=== PATIENT | male | born 1980 | race Caucasian/White ===

== ENCOUNTER 2023-09-26 06:15 | Day surgery (SDC) | payer OTHER, SELFPAY ==
[2023-09-26] VITALS (11 sets, daily range): BP systolic 103–139; BP diastolic 62–89; BMI 33.8
[2023-09-26] MEDS: NORMOSOL-R 1000 IV (13:02)
[2023-09-26] MEDS: TYLENOL 1000 MG PO (13:20)
--- NOTE | 2023-09-26 16:01 | W.SUR.PREOP ---
Pre-Operative Surgical Note
-
I have examined this patient prior to the performance of the scheduled procedure.
The patient's condition is unchanged from the time of the current History and
Physical and the patient is able to undergo the scheduled procedure.
--- NOTE | 2023-09-26 16:01 | W.IMMPOSTOP ---
Surgical Immed Post Op Note
-
Primary Surgeon: Reid Mo MD
Assisting Surgeon: None
Pre-op Diagnosis: Umbilical hernia
Post-op Diagnosis: Same
Procedure Performed: Robotic umbilical hernia repair with mesh (RONAN approach)
Anesthesia Type: General
Specimen / Cultures: None
Estimated Blood Loss: 3 cc
Complications: None
Operative Findings: 1.5 cm umbilical defect closed with a running 0 PDS strata fix. The peritoneal flap was quite thin so an [address] (polypropylene coated mesh) was used but was almost entirely covered except for a few centimeters of
the right upper quadrant.
--- NOTE | 2023-09-26 16:04 | OR.RPT ---
Operative Report
Operative Report
Patient Name: Daren Kent
: 1980
Date of Operation: 09/26/2023
Preoperative Diagnosis: Umbilical hernia
Postoperative Diagnosis: Same
Procedure(s):
Robotic umbilical hernia repair with mesh (RONAN approach)
Surgeon(s):
Dr. Mo
Assitant(s):
[facility] Or[facility]
Anesthesia: General
Estimated Blood Loss: 3 cc
Urine Output: None
Drains/Lines/Implants:
[address] cm [address] Bard [address] (coated polypropylene) mesh
Specimens:
None
HPI/Surgical Indications:
This is a 43-year-old male who was seen in my office for a symptomatic umbilical bulge and diagnosed with a reducible umbilical hernia. Risks/Benefits/Alternatives were discussed at length, and the patient agreed to proceed with surgery.
Operative Findings: 1.5 cm umbilical defect containing preperitoneal fat closed with a running 0 PDS strata fix. The peritoneal flap was quite thin so an [address] (polypropylene coated mesh) was used but was almost entirely covered
except for a few centimeters of the right upper quadrant.
Procedure Description:
The patient was brought to the Operating Room and placed in the supine position with the arms tucked. IV antibiotics were infused and Venodyne stockings placed. Following uneventful induction of general endotracheal anesthesia, an orogastric tube
were placed. The abdomen was prepped and draped in the usual sterile fashion. The abdomen was entered using a Veress technique which required 1 pass, pneumoperitoneum to 15 mmHg was obtained without difficulty. An 8mm trochar was passed through
the abdominal wall roughly 20 cm laterally from the defect in the left upper quadrant, we then confirmed the no inadvertent injury and made while passing the trocar or Veress needle. We then placed two additional 8 mm ports in the left lower
quadrant. Bilateral tap blocks were performed. The robot was docked. We then introduced our prograsper through the inferior/left hand port and a monopolar scissors through the superior port. We then turned our attention to the hernia which had
no intra-abdominal contents. We then began taking a flap down roughly 6 cm away from the defect and roughly 12 cm in length taking care to stay in the pretransversalis plane. The peritoneum was very thin particularly at the superior aspect of the
dissection. The preperitoneal fat was taken down off of the posterior rectus sheath both superior and inferior to the hernia defect such that we were able to get our 'volcano sign'. We then worked on reducing the defect which contained
preperitoneal fat and continued our dissection out laterally for an additional 6 to 7 cm. Once our flap was created we introduced a ruler and a 0 PDS Stratafix. The main hernia defect measured 1.5 cm. The pocket measured 12 x 12 cm. Given how
thin her peritoneal flap was and the rents in the right upper quadrant of our flap I elected to use an 11 cm round Bard Ventralight ST (coated polypropylene) mesh which was secured to the abdominal wall first using Aron Boogie passed through
infraumbilical stab incision the mesh was then secured to the posterior rectus sheath using a circumferential running 2-0 PDS STRATAFIX suture with good apposition. The flap was then closed with a running 2-0 barbed Monocryl. There were a few
rents in the left upper quadrant of the flap that were closed with interrupted 2-0 Vicryl's. There was only a few centimeters of the mesh in the right upper quadrant that were exposed however the flap was under fair deal of tension and attempted
closure would likely just increase the size of the rents. All sutures were removed. The robot was undocked. The ports were removed under direct visualization and pneumoperitoneum was evacuated. The port sites were closed with 4-0 Monocryl followed
by Dermabond. Counts were correct and overall, the patient tolerated the procedure well and was taken to the Recovery Room postoperatively in stable condition.
I was the attending physician and performed the procedure with assistance from the PA above. The assistance of [facility] was required due to the complexity of the procedure. During the procedure Henna assisted with retraction, resection,
passing mesh and suture as well as exchanging instruments and closure of the port sites. I was present for all portions of the case except for skin closure.
Reid Mo MD
[2023-09-26] MEDS: ZOFRAN 4 MG IV (16:19)
[2023-09-26] MEDS: DILAUDID 0.25 MG IV (16:40)
== END 2023-09-26 17:46 | disposition home or self-care (01) ==
LOC: SDS 06:15
PROVIDERS: ATTENDING PHYSICIAN Surgery
DX: K42.9 Umbilical hernia without obstruction or gangrene (principal)
CPT/HCPCS: 49591; C1781

== ENCOUNTER → 2025-03-04 11:18 | Outpatient (REF) | payer OTHER, SELFPAY | LOC: RAD 11:18 | PROVIDERS: ATTENDING PHYSICIAN Family Medicine | DX: M54.9 Dorsalgia, unspecified (principal) | CPT/HCPCS: 74018 ==

== ENCOUNTER 2025-04-27 06:26 | Day surgery (SDC) | payer OTHER, SELFPAY ==
[2025-04-27] VITALS (10 sets, daily range): BP systolic 98–131; BP diastolic 62–79; BMI 33.7
[2025-04-27] MEDS: NORMOSOL-R/PLASMALYTE-A 1000 IV (11:13)
[2025-04-27] MEDS: ZOFRAN 4 MG IV (13:04)
== END 2025-04-27 14:23 | disposition home or self-care (01) ==
LOC: SDS 06:26
PROVIDERS: ATTENDING PHYSICIAN Specialist
DX: N20.1 Calculus of ureter (principal)
CPT/HCPCS: 52353; 76000